=== PATIENT | male | born 1995 | race Caucasian/White ===

== ENCOUNTER 2021-02-15 02:38 | Emergency (ER) | payer SELFPAY ==
[~2021-02-15] VITALS: Ht 175.3 cm; Wt 120.0 kg
[2021-02-15 03:54] LABS: BASOPHILS % 0.9 % (0.0-2.0); EOSINOPHILS % 1.4 % (0.0-5.0); HEMATOCRIT. 44.6 % (42.0-52.0); HEMOGLOBIN. 15.2 g/dL (14.0-18.0); LYMPHOCYTES % 41.3 % (20.0-50.0); MEAN CORPUSCULAR HEMOGLOBIN 28.9 pg (28.0-32.0); MEAN CORPUSCULAR VOLUME 84.6 fL (80.0-94.0); MEAN PLATELET VOLUME 9.7 fl (7.4-10.4); MONOCYTES % 11.4 % (2.0-8.0); PLATELET 226 x1000/uL (130-400); RED BLOOD CELL COUNT 5.27 mill/uL (4.7-6.1); RED CELL DISTRIBUTION WIDTH 14.2 % (11.6-14.6)
[2021-02-15 04:02] LABS: CHLORIDE 106 mEq/L (98-107)
[2021-02-15 04:34] VITALS: BP 149/89
== END 2021-02-15 06:06 | disposition home or self-care (01) ==
LOC: ER 02:38 → EDBD 02:38 → ER 06:06
DX: I95.1 Orthostatic hypotension (principal); E87.6 Hypokalemia
CPT/HCPCS: 36415; 80048; 84484; 85025; 85379; 93005; 99284